=== PATIENT | female | born 1985 | race Caucasian/White ===

== ENCOUNTER 2022-06-14 10:07 | Outpatient (CLI) | payer OTHER, SELFPAY ==
--- NOTE | 2022-06-14 10:31 | XR_ITS ---
WS: [id number] Exam: XR soft tissue neck [id number] Date/Time of Exam: 06/14/2022 10:50 AM Reason For Exam: R22.1 - Localized swelling, mass and lump, neck No fracture or dislocation. There is straightening and slight reversal of the normal cervical lordosi s. Disc spaces are preserved. Posterior elements are intact. The odontoid appears normal. Normal para spinal soft tissues. XR/XR soft tissue neck [id number] IMPRESSION: 1. Straightening of the C-spine. No fracture or malalignment.
== END 2022-06-14 10:08 | disposition home or self-care (01) ==
PROVIDERS: PCP Registered Nurse; Visit Provider Registered Nurse
DX: R22.1 Localized swelling, mass and lump, neck (principal)
CPT/HCPCS: 70360

== ENCOUNTER 2022-06-27 06:06 | Outpatient (CLI) | payer OTHER, SELFPAY ==
--- NOTE | 2022-06-27 06:30 | US_ITS ---
WS: [id number] ULTRASOUND SOFT TISSUES LEFT neck. HISTORY: R22.1 - Localized swelling, mass and lump, neck COMPARISON: None available. TECHNIQUE: 2-D and color Doppler imaging is submitted. Ultrasound directed to the LEFT neck soft tissues as indicated by the patient. Area of interest is ne ar the submandibular gland. The submandibular gland appears normal by ultrasound. There are several b enign-appearing cervical chain lymph nodes. No suspicious mass or adenopathy. US/US soft tissue head neck [id number] IMPRESSION: Unremarkable ultrasound soft tissue LEFT neck.
== END 2022-06-27 06:07 | disposition home or self-care (01) ==
LOC: RAD 06:06
PROVIDERS: PCP Registered Nurse; Visit Provider Registered Nurse
DX: R22.1 Localized swelling, mass and lump, neck (principal)
CPT/HCPCS: 76536